=== PATIENT | female | born 1975 | race Caucasian/White ===

== ENCOUNTER → 2016-09-17 | Day surgery (SDC) | payer OTHER ==
--- NOTE | 2016-09-18 13:05 | PATH ---
Surgical Pathology Report Patient Name: WILIAN DICKSON [facility]. Rec. #: [id number] /Age/Gender: 1975 (Age: 41) / F Account: [id number] Location: [facility] Taken: 09/17/2016 Received: 09/17/2016 Reported: 09/18/2016 Physicians: Polly Rene M.D. Specimen(s) Received A: RIGHT BREAST SPECIMEN WITH CALCIFICATIONS B: RIGHT BREAST SPECIMEN WITHOUT CALCIFICATIONS Clinical History Nonpalpable lesion Mammographic findings: microcalcification, suspicious Final Diagnosis A. BREAST, RIGHT, WITH CALCIFICATIONS, STEREOTACTIC BIOPSY: BREAST TISSUE SHOWING COLUMNAR CELL CHANGES WITH ASSOCIATED CALCIFICATIONS. B. BREAST, RIGHT, WITHOUT CALCIFICATIONS, STEREOTACTIC BIOPSY: FOCAL ATYPICAL DUCTAL HYPERPLASIA (ADH) ARISING IN ASSOCIATION WITH COLUMNAR CELL CHANGES. Electronically Signed Karlie Menezes M.D. Gross Description A. Received in formalin, labeled "right breast with calcifications," are 3 farris-yellow, cylindrical portions of fibroadipose tissue ranging from 2.3-3.0 cm. in length and averaging 0.2 cm. in diameter. The specimen is submitted in toto in one cassette. B. Received in formalin, labeled "right breast without calcifications," are 5 farris-yellow, cylindrical portions of fibroadipose tissue ranging from 0.7-2.5 cm. in length and averaging 0.3 cm. in diameter. The specimen is submitted in toto in one cassette. Time to formalin fixation: 5 minutes Total formalin fixation time: Approximately 6 hours. 09/17/201609/17/2016
== END | disposition home or self-care (01) ==
LOC: FMAMMOTONE 10:28
PROVIDERS: ATTEND Surgery
PROC: 0HBT3ZX Excision of Right Breast, Percutaneous Approach, Diagnostic (ICD-10-PCS; principal; 2016-09-17)
DX: N60.81 Other benign mammary dysplasias of right breast (principal); R92.1 Mammographic calcification found on diagnostic imaging of breast
CPT/HCPCS: 19081; 87899; 88305-TC; A4648

== ENCOUNTER 2016-10-15 06:45 | Day surgery (SDC) | payer OTHER ==
--- NOTE | 2016-10-13 10:25 | HP ---
Admitting History and Physical - Primary Care Physician PCP: Kat Garcia - Admission Chief Complaint: right breast atypia History of Present Illness: Patient is a 41 yo female noted to have right breast calcifications at the 12: 00 position (08/28/2016). Patient underwent stereotactic core bx which was positive for atypia. Patient is presenting for right breast WE with NL. History Source: Patient Limitations to Obtaining History: No Limitations - Past Medical History ...LMP: 12/24/13 - Past Surgical History Past Surgical History: Yes: Breast Biopsy (bilateral breast bx (benign cyst) 2004), Tubal Ligation Additional Past Surgical History: abdominoplasty parottid gland cyst excision (2014) - Smoking History Smoking history: Never smoked Have you smoked in the past 12 months: No - Alcohol/Substance Use Hx Alcohol Use: No Home Medications - Allergies Allergies/Adverse Reactions: Allergies Allergy/AdvReac Type Severity Reaction Status Date / Time erythromycin base Allergy Mild Hives Verified 05/13/15 16:31 [Erythromycin Base] Penicillins Allergy Mild Hives Verified 05/13/15 16:31 - Home Medications Home Medications: Ambulatory Orders No Home Medications 0 dose .ROUTE UTDICT 01/01/14 Lipase/Protease/Amylase [Pancrelipase 5,000 Dr Capsule -] 2 each PO TIDCM #30 cap 01/02/14 Metronidazole [Flagyl -] 250 mg PO TID #10 tablet 01/02/14 Pantoprazole Sodium [Protonix -] 40 mg PO DAILY #30 tablet.ec 01/02/14 Family Disease History - Family Disease History Family Disease History: CA: Grandparent (breast), Brother (leukemia) Other Family History: paternal aunt- breast 50s. maternal cousin-leukemia. maternal cousin-colon cancer Review of Systems - Review of Systems Cardiovascular: reports: No Symptoms Respiratory: reports: No Symptoms Breasts: reports: See HPI Musculoskeletal: reports: Back Pain Physical Examination Breast(s): Yes: Other (Breasts are diffusely nodular without suspicious masses or adenopathy bilaterally.) Problem List - Problems (1) Atypical ductal hyperplasia of right breast Assessment/Plan: right breast WE with NL Code(s): N60.91 - UNSPECIFIED BENIGN MAMMARY DYSPLASIA OF RIGHT BREAST
[2016-10-14 12:24] VITALS: BMI 31.4
[2016-10-15] MEDS ORDERED: MIDAZOLAM HCL 2 MG/2 ML SINGLE DOSE VIAL ONE ×3 (11:35→12:06)
[2016-10-15] MEDS ORDERED: KETOROLAC TROMETHAMINE 30 MG/1 ML VIAL ONE (11:47)
[2016-10-15] MEDS ORDERED: ONDANSETRON 4 MG/2 ML VIAL ONE (11:48)
[2016-10-15] MEDS ORDERED: DEXAMETHASONE SOD PHOSPHATE 4 MG/1 ML VIAL ONE (11:48)
[2016-10-15] MEDS ORDERED: PROPOFOL 20 ML ONE (11:53)
[2016-10-15] MEDS ORDERED: CLINDAMYCIN PHOSPHATE 600 MG/4 ML VIAL ONE (11:57)
[2016-10-15] MEDS ORDERED: KETOROLAC TROMETHAMINE 30 MG/1 ML VIAL IVPUSH PRN (13:21)
[2016-10-15] MEDS ORDERED: DEXTROSE 5%-0.45% SALINE 1,000 ML IV SCH (13:30)
[2016-10-15 13:42] VITALS: TEMP 97.5
[2016-10-15] MEDS ORDERED: ONDANSETRON *ODT* 4 MG TABLET ONE (14:13)
[2016-10-15] MEDS ORDERED: ONDANSETRON 4 MG/2 ML VIAL IVPB PRN (14:35)
[2016-10-15 14:50] VITALS: PULSE 58
[2016-10-15 14:51] VITALS: BP 126/67
--- NOTE | 2016-10-16 08:15 | OP ---
DATE OF OPERATION: 10/15/2016 PREOPERATIVE DIAGNOSIS: Right breast atypia. POSTOPERATIVE DIAGNOSIS: Right breast atypia. PROCEDURE: Right wide excision with needle localization. SURGEON: Kat Garcia MD EDITOR PRODUCER: GILDARDO Nunez ANESTHESIA: MAC. ANESTHESIOLOGIST: Ravi Manzanares MD SPECIMEN: Right breast tissue. INDICATIONS FOR PROCEDURE: The patient is a 41-year-old female with a family history of breast and colorectal cancer. She had an abnormal right mammogram. Biopsy showed atypia. Wide excision was recommended. She is going into the operating room for the procedure. The procedure, risks, and complications were discussed with her prior to surgery. DESCRIPTION OF PROCEDURE: The patient was taken to breast imaging where she underwent localization of the clip in the right breast. She was taken to ambulatory surgery, where informed consent was obtained, and the right breast was identified with a marker. She was taken to the operating room and placed on the operating table in the supine position. Sequential compression devices were placed on both legs. She received clindamycin prior to surgery. Anesthesia was initiated. The right breast was prepped and draped in the usual fashion. A time-out was performed. Examination of the breast showed a localizing wire exiting from the 12 o'clock position. The tip was palpated through the skin. An incision was made after infiltrating the skin with 1% lidocaine. The incision was made at the superior border of the areola. The incision was deepened using electrocautery. Electrocautery was used to mobilize the tissue around the wire until it was completely from the breast tissue. The tissue was very dense. Once the tissue was completely mobilized, the specimen was labeled with silk sutures with a long stitch laterally and a short stitch superiorly. During this process, the needle was inadvertently detached from the specimen. This specimen was sent to radiology which showed the specimen was included. The wound was irrigated and inspected for hemostasis. Once hemostasis was satisfactory, the incision was closed. The skin was infiltrated with 0.25% Marcaine. The deep tissue was reapproximated with interrupted sutures of 3-0 Vicryl. The dermis was closed with interrupted sutures of 3-0 Vicryl. The skin was closed with a running subcuticular closure of 4-0 Monocryl. The patient tolerated the procedure well. At the end of the procedure, all sponge and instrument counts were correct. She was awakened and taken to the recovery area in satisfactory condition. Polly [id number] MTDD
--- NOTE | 2016-10-19 15:52 | PATH ---
Surgical Pathology Report Patient Name: SYLVIA DICKSON [facility]. Rec. #: [id number] /Age/Gender: 1975 (Age: 41) / F Account: [id number] Location: [facility] Taken: 10/15/2016 Received: 10/15/2016 Reported: 10/19/2016 Physicians: Kat Garcia M.D. Specimen(s) Received RIGHT BREAST WIDE EXCISION Clinical History Atypia Final Diagnosis BREAST, RIGHT, WIDE EXCISION: BREAST TISSUE SHOWING ATYPICAL DUCTAL HYPERPLASIA (ADH) WITH ASSOCIATED CALCIFICATIONS. PRIOR BIOPSY SITE CHANGES ARE PRESENT. Electronically Signed Karlie Menezes M.D. Gross Description Received in formalin, labeled "right breast wide excision," is a 4.6 x 4.3 x 1.2 cm. farris-yellow, irregular, portion of fibroadipose tissue. There is no needle localization wire present. There is a short suture marking the superior aspect and a long suture marking the lateral aspect, per the surgeon. There is no skin or nipple present. The specimen is inked as follows: superior and lateral blue; inferior green; medial yellow; anterior red; deep black. The specimen is serially sectioned from lateral to medial. Sectioning reveals a focus of hemorrhage, possibly consistent with a previous biopsy site. The remaining breast parenchyma displays diffuse dense, white fibrous tissue. No definitive masses are identified. Tractor Engine Assembler sections are submitted in 8 cassettes as follows: 1-focus of hemorrhage with anterior, deep and inferior margins; 9-3-[id number] fibrous tissue surrounding focus of hemorrhage with anterior, deep and inferior margins; 4-focus of hemorrhage with medial margin; 5-superior margin; [id number] admissions representative fibrous tissue with anterior and deep margins; 8-lateral margin. Time to formalin fixation: 25 minutes Total formalin fixation time: Approximately 29 hours. 10/16/2016 saudi10/16/2016
== END 2016-10-15 14:45 | disposition home or self-care (01) ==
LOC: FASU 06:45
PROVIDERS: ATTEND Surgery
PROC: 0HBT0ZX Excision of Right Breast, Open Approach, Diagnostic (ICD-10-PCS; principal; 2016-10-15 11:30)
DX: N60.91 Unspecified benign mammary dysplasia of right breast (principal); N64.89 Other specified disorders of breast; Z80.3 Family history of malignant neoplasm of breast; Z80.0 Family history of malignant neoplasm of digestive organs
CPT/HCPCS: 19281; 84703; 88307-TC

== ENCOUNTER 2017-10-19 06:36 | Emergency (ER) | payer OTHER ==
[2017-10-19 06:55] VITALS: TEMP 98.3; BMI 30.9
--- NOTE | 2017-10-19 07:46 | PDOC ---
History of Present Illness - General Chief Complaint: Pain Stated Complaint: ABD PAIN Time Seen by Provider: 10/19/17 07:41 - History of Present Illness Initial Comments: 10/19/17 07:44 42 yo (1 aborta) F with h/o atypical ductal dysplasia of R breast, abdominoplasty w/ panniculectomy, and tubal ligation who p/w pelvic pain. Patient reports 2 days of worsening intense spasmodic pelvic and lower abdominal pain occurring every hour. Occasional rectal radiation of pain. States that pelvic pain is similiar to uterine contraction type pain. No identifiable triggers or alleviators. 3 Tylenol this AM with no relief. Patient also reports 3-5 days of mennorhagia requiring 3-5 soaked tampons per day, with absent vaginal discharge. Pt. states this is day 2 of her second menstruation this month. Endorses dyspareurnia. Denies GI complaints. Denies N/V , diarrhea, constipation, postprandial pain, or decreased PO intake. Denies F/C , N/V, CP, SOB, urinary complaints, lightheadedness, weakness, sensory changes. 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 Patient with recent workup for mesntrual cramps this past month, with neg. transvaginal U/S. Currently sexually active with of 30 years. Denies h/o STI's. Tobacco cessation 8 years ago following 25 year ppd smoking history. Denies alcohol use. Urnremarkable transvaginal U/S (09/17/17) Past History - Past Medical History Allergies/Adverse Reactions: Allergies Allergy/AdvReac Type Severity Reaction Status Date / Time erythromycin base Allergy Mild Hives Verified 10/15/16 07:41 [Erythromycin Base] Penicillins Allergy Mild Hives Verified 10/15/16 07:41 Home Medications: Ambulatory Orders NK [No Known Home Medication] 10/19/17 Anemia: No Asthma: No Cancer: No Cardiac Disorders: No CVA: No COPD: No CHF: No Dementia: No Diabetes: No GI Disorders: No Disorders: No HTN: No Hypercholesterolemia: No Liver Disease: No Seizures: No Thyroid Disease: No - Surgical History Abdominal Surgery: (tummy tuck) Appendectomy: No Cardiac Surgery: No Cholecystectomy: No Lung Surgery: No Neurologic Surgery: No Orthopedic Surgery: No - Suicide/Smoking/Psychosocial Hx Smoking History: Never smoked Have you smoked in the past 12 months: No Information on smoking cessation initiated: No Hx Alcohol Use: No Drug/Substance Use Hx: No Substance Use Type: None Hx Substance Use Treatment: No Review of Systems - Review of Systems Comments:: 10/19/17 07:45 GENERAL/CONSTITUTIONAL: No fever or chills. No weakness. HEAD, EYES, EARS, NOSE AND THROAT: No change in vision. No ear pain or discharge. No sore throat. CARDIOVASCULAR: No chest pain or shortness of breath RESPIRATORY: No cough, wheezing, or hemoptysis. GASTROINTESTINAL: + Abdominal pain. No nausea, vomiting, diarrhea or constipation. GENITOURINARY: + Pelvic Pain. No dysuria, frequency, or change in urination. MUSCULOSKELETAL: No joint or muscle swelling or pain. No neck or back pain. SKIN: No rash NEUROLOGIC: No headache, vertigo, loss of consciousness, or change in strength/ sensation. ENDOCRINE: No increased thirst. No abnormal weight change HEMATOLOGIC/LYMPHATIC: No anemia, easy bleeding, or history of blood clots. ALLERGIC/IMMUNOLOGIC: No hives or skin allergy. *Physical Exam - Vital Signs Last Vital Signs Temp Pulse Resp BP Pulse Ox 98.3 F 69 18 134/74 99 10/19/17 06:52 10/19/17 06:52 10/19/17 06:52 10/19/17 06:52 10/19/17 06:52 - Physical Exam Comments: 10/19/17 07:45 GENERAL: Awake, alert, and fully oriented, in no acute distress HEAD: No signs of trauma, normocephalic, atraumatic EYES: PERRLA, EOMI, sclera anicteric, conjunctiva clear ENT:Hearing grossly normal, nares patent, oropharynx clear without exudates. Moist mucosa NECK: Normal ROM, supple, no lymphadenopathy, JVD, or masses LUNGS: No distress, speaks full sentences, clear to auscultation bilaterally HEART: Regular rate and rhythm, normal S1 and S2, no murmurs, rubs or gallops, peripheral pulses normal and equal bilaterally. ABDOMEN: Soft, lower abdominal ttp. normoactive bowel sounds. No guarding, no rebound, no rigidity. No masses. Neg CVA ttp. : Normal appearing external genitalia. blood in vaginal vault. Absent cervical change. Cervical os closed, with absent drainage. Absent CMT on BM. Chaperoned by Rosa peterson. EXTREMITIES : Normal inspection, Normal range of motion, no edema. No clubbing or cyanosis. SKIN: Warm, Dry, normal turgor, no rashes or lesions noted ED Treatment Course - LABORATORY CBC & Chemistry Diagram: 10/19/17 09:25 10/19/17 09:25 Medical Decision Making - Medical Decision Making 10/19/17 08:24 42 yo (1 aborta) F with h/o atypical ductal dysplasia of R breast, abdominoplasty w/ panniculectomy, and tubal ligation who p/w 2 days of worsening, pelvic and lower abdominal, spasmodic pain and 3-5 days of heavy menstrual bleeding. + dyspareurnia. Denies F/C, N/V, diarrhea, constipation, postprandial pain, or decreased PO intake CP, SOB, urinary complaints, lightheadedness, weakness, sensory changes. 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 Patient with recent workup for menstrual cramps this past month, with neg. transvaginal U/S. Physical exam with lower abdominal ttp. pelvic exam unremarkable. HDS. R/o ectopic in setting of painful vaginal bleeding. Differential also includes endometriosis, DUB, cystitis, threatened . ED Course: Urine preg, UA, CBC, CMP, T&S Transvaginal U/S NS 1 L 10/19/17 12:41 CBC, CMP UA: 3 + blood, 50 RBC, neg nitrite. 10/19/17 12:59 Transvaginal U/S: Unremarkable. Similar to previous study (09/17/17) D/c with return precautions. Advised to f/u with AIRPORT MAINTENANCE LABORER. 10/19/17 13:[address] Bryant, have pt. f/u with him this week. No further recs. *DC/Admit/Observation/Transfer Diagnosis at time of Disposition: Dysfunctional uterine bleeding - Discharge Dispostion Disposition: HOME Condition at time of disposition: Stable Admit: No - Referrals Referrals: Juan Carlos Rehman [Primary Care Provider] - - Patient Instructions Printed Discharge Instructions: Painful Menstrual Periods, DI for Dysmenorrhea Additional Instructions: Please return to the emergency department with any new or worsening symptoms or concerns. Please follow up with your primary care physician within 72 hours. - Post Discharge Activity - Attestations Physician Attestion: 10/19/17 07:46 I attest to the information provided in this note.
[2017-10-19] MEDS ORDERED: SODIUM CHLORIDE 1,000 ML IV STA (08:27)
[2017-10-19 09:34] LABS: HCG,QUALITATIVE URINE NEGATIVE; URINE APPEARANCE CLEAR; URINE BILIRUBIN NEGATIVE (<2.0 mg/dL); URINE BLOOD 3+ (NEGATIVE); URINE COLOR STRAW; URINE GLUCOSE (UA) NEGATIVE (NEGATIVE); URINE KETONE NEGATIVE (NEGATIVE); URINE LEUK ESTERASE NEGATIVE (NEGATIVE); URINE NITRITE NEGATIVE (NEGATIVE); URINE PROTEIN NEGATIVE (NEGATIVE); URINE UROBILINOGEN NEGATIVE mg/dL (0.2-1.0)
[2017-10-19] MEDS ORDERED: KETOROLAC TROMETHAMINE 30 MG/1 ML VIAL IVPUSH ONE (09:43)
[2017-10-19 09:55] LABS: BASO % 0.7 % (0-2.0); EOS % 2.6 % (0-4.5); HEMATOCRIT 39.1 % (32.4-45.2); LYMPH % 19.4 % (8-40); MCH 28.8 pg (25.7-33.7); MCHC 33.2 g/dl (32.0-36.0); MEAN CELL VOLUME 86.6 fl (80-96); MEAN PLT VOLUME 8.7 fl (7.5-11.1); NEUT % 69.3 % (42.8-82.8); PLATELET COUNT 354 K/MM3 (134-434); RBC 4.51 M/mm3 (3.60-5.2); WHITE BLOOD COUNT 9.9 K/mm3 (4.0-10.0)
[2017-10-19 10:15] LABS: ALBUMIN 3.4 g/dl (3.4-5.0); ALK PHOS 98 U/L (45-117); ANION GAP 6 (8-16); BILIRUBIN,TOTAL 0.2 mg/dL (0.2-1.0); BLOOD UREA NITROGEN 13 mg/dL (7-18); CALCIUM 8.7 mg/dL (8.5-10.1); CHLORIDE 108 mmol/L (98-107); CO2 27 mmol/L (21-32); CREATININE 0.6 mg/dL (0.55-1.02); GLUCOSE,RANDOM 76 mg/dL (74-106); SGPT/ALT 32 U/L (12-78); SODIUM 141 mmol/L (136-145)
[2017-10-19 10:16] LABS: POTASSIUM 4.9 mmol/L (3.5-5.1); SGOT/AST 20 U/L (15-37)
[2017-10-19] MEDS ORDERED: KETOROLAC TROMETHAMINE 30 MG/1 ML VIAL ONE (10:30)
[2017-10-19 10:55] LABS: INR 1.03 (0.82-1.09); PROTHROMBIN TIME (PATIENT) 11.6 SEC (9.98-11.88)
[2017-10-19 11:42] LABS: EPI CELLS RARE /HPF (FEW); URINE MUCUS RARE
[2017-10-19] MEDS ORDERED: ACETAMINOPHEN 500 MG TABLET (FP) PO ONE (13:46)
[2017-10-19] MEDS ORDERED: ACETAMINOPHEN 325 MG TABLET (FP) ONE (13:51)
[2017-10-19 13:58] VITALS: BP 129/78; PULSE 73
--- NOTE | 2017-10-19 14:28 | PDOC ---
Attending Attestation - Resident Resident Name: Evert Queen - ED Attending Attestation I have performed the following: I have examined & evaluated the patient, The case was reviewed & discussed with the resident, I agree w/resident's findings & plan, Exceptions are as noted <Marianela Mack - Last Filed: 10/19/17 14:27> - HPI HPI: 10/19/17 14:29 The patient is a 42 year old female (aborta 1) with past medical history of right breast ductal dysplasia, tummy tuck, and tubal ligation who presents to the ED with complaints of 2 days of worsening pelvic pain for the past two days. The patient complains of an intermittent cramping pain that feels like contractions with associated heavy bleeding, stating she is saturating 3-5 large tampons a day. She reports currently having her menses for the second time this month and reports being worked up for intense cramping over the past month in which she had a negative transvaginal ultrasound 1 month ago. The patient denies any history of STD, or any vaginal discharge, states she is sexually active with only her . Denies any recent illness, fevers, or chills. Denies dizziness, CP, SOB. - Physicial Exam PE: 10/19/17 14:29 agree with resident exam - Medical Decision Making 10/19/17 14:29 Documentation prepared by Rosa Mcmullen, acting as medical lab director for Marianela Mack MD, /DO. <Rosa Mcmullen - Last Filed: 10/19/17 14:29>
--- NOTE | 2017-10-19 16:58 | EKG ---
Test Reason : Blood Pressure : / mmHG Vent. Rate : 056 BPM Atrial Rate : 056 BPM P-R Int : 126 ms QRS Dur : 088 ms QT Int : 426 ms P-R-T Axes : 016 066 036 degrees QTc Int : 411 ms SINUS BRADYCARDIA OTHERWISE NORMAL ECG WHEN COMPARED WITH ECG OF 01-JAN-2014 18:56, NO SIGNIFICANT CHANGE WAS FOUND Confirmed by MD Patricia, Federico ([id number]) on 10/19/2017 4:57:38 PM Referred By: Confirmed By:Federico Gomez MD
== END 2017-10-19 13:58 | disposition home or self-care (01) ==
LOC: JER 06:36
PROC: 3E0337Z Introduction of Electrolytic and Water Balance Substance into Peripheral Vein, Percutaneous Approach (ICD-10-PCS; principal; 2017-10-19)
PROC: 3E0333Z Introduction of Anti-inflammatory into Peripheral Vein, Percutaneous Approach (ICD-10-PCS; 2017-10-19)
DX: N93.8 Other specified abnormal uterine and vaginal bleeding (principal)
CPT/HCPCS: 36415; 76830-TC; 80053; 81003; 81015; 84703; 85025; 85610; 93005; 93010; 99284-25; J7030

== ENCOUNTER 2018-04-08 06:49 | Day surgery (SDC) | payer OTHER ==
[2018-04-04 08:24] VITALS: BMI 30.6
[2018-04-08] MEDS ORDERED: ONDANSETRON 4 MG/2 ML VIAL IVPUSH PRN ×2 (07:45→09:33)
[2018-04-08] MEDS ORDERED: LACTATED RINGERS SOLUTION 1,000 ML IV SCH (07:45)
[2018-04-08] MEDS ORDERED: oxyCODONE HCL 5 MG TABLET PO PRN ×3 (07:45→09:33)
--- NOTE | 2018-04-08 08:14 | HP ---
History & Physical Update - Physical Physical: No Change - Assessment Assessment: No Change - Plan Plan: No Change
[2018-04-08] MEDS ORDERED: MIDAZOLAM HCL 2 MG/2 ML SINGLE DOSE VIAL ONE (08:16)
[2018-04-08] MEDS ORDERED: DEXAMETHASONE SOD PHOSPHATE 4 MG/1 ML VIAL ONE (09:06)
[2018-04-08] MEDS ORDERED: LIDOCAINE HCL/PF 2% SDV 5ML VIAL ONE (09:06)
[2018-04-08] MEDS ORDERED: PROPOFOL 20 ML ONE (09:10)
[2018-04-08] MEDS ORDERED: KETOROLAC TROMETHAMINE 30 MG/1 ML VIAL ONE (09:25)
[2018-04-08] MEDS ORDERED: IBUPROFEN 800 MG/8 ML IJ IVPB PRN (09:33)
[2018-04-08] MEDS ORDERED: IBUPROFEN 600 MG TABLET (FP) PO PRN (09:33)
[2018-04-08] MEDS ORDERED: ELECTROLYTE-148 SOLN 1,000 ML IV SCH (09:45)
[2018-04-08] MEDS ORDERED: oxyCODONE HCL 5 MG TABLET ONE (11:31)
[2018-04-08 12:52] VITALS: BP 149/94; PULSE 51; TEMP 97.5
--- NOTE | 2018-04-11 17:07 | PATH ---
Surgical Pathology Report Patient Name: SYLVIA DICKSON [facility]. Rec. #: [id number] /Age/Gender: 1975 (Age: 43) / F Account: [id number] Location: [facility] Taken: 04/08/2018 Received: 04/08/2018 Reported: 04/11/2018 Physicians: Glen Ortiz M.D. Specimen(s) Received ENDOMETRIAL CURETTINGS Clinical History Menorrhagia Final Diagnosis ENDOMETRIAL CURETTINGS: SECRETORY ENDOMETRIUM WITH STROMAL BREAKDOWN. SEPARATE FEW FRAGMENTS OF SMOOTH MUSCLE BUNDLES. Electronically Signed Stephanie Almanza M.D. Gross Description Received in formalin labeled "endometrial curettings," is a 1.8 x 1.4 x 0.3 cm aggregate of farris-brown soft tissue fragments. The formalin is filtered and the specimen is entirely submitted in one cassette. /04/08/201804/08/2018
--- NOTE | 2018-04-12 10:20 | OP ---
DATE OF OPERATION: 04/08/2018 PREOPERATIVE DIAGNOSIS: Menometrorrhagia. POSTOPERATIVE DIAGNOSIS: Menometrorrhagia. PROCEDURE: Hysteroscopy, dilatation and curettage, and endometrial hydrothermal ablation. SURGEON: Glen Ortiz MD ANESTHESIA: General. ESTIMATED BLOOD LOSS: 20 mL DESCRIPTION OF OPERATION: Patient was taken to the operating room. Under adequate general anesthesia, in dorsal lithotomy position, examination under anesthesia revealed the external genitalia to be normal. Vagina was normal. Cervix was clean; no lesion. Uterus was prominent. Adnexa: No masses were palpable. Then, with a weighted speculum in the vagina, anterior lip of the cervix was grasped with a single-tooth tenaculum. Cervix was gradually dilated with Hegar dilators, and then, hysteroscope was introduced. Visualization of endocervical canal appeared to be normal. Endometrium was prominent, but no abnormality was seen. No submucous myoma visualized. Both cornua regions were visualized. Then, hysteroscope was withdrawn, and D&C was done. Then, thermal ablation device was inserted, and a thermal ablation was done successfully without any complication. Patient tolerated the procedure well, left the OR in good condition. GLEN ORTIZ M.D. [id number]
== END 2018-04-08 12:50 | disposition home or self-care (01) ==
LOC: JASU-SURG 06:49
PROVIDERS: ATTEND Obstetrics & Gynecology
PROC: 0U5B8ZZ Destruction of Endometrium, Via Natural or Artificial Opening Endoscopic (ICD-10-PCS; principal; 2018-04-08 08:30)
PROC: 0UDB7ZX Extraction of Endometrium, Via Natural or Artificial Opening, Diagnostic (ICD-10-PCS; 2018-04-08 08:30)
DX: N92.1 Excessive and frequent menstruation with irregular cycle (principal)
CPT/HCPCS: 84703; 88305-TC; 94760

== ENCOUNTER 2018-12-21 07:28 | Day surgery (SDC) | payer OTHER | END 2018-12-21 09:15 | disposition home or self-care (01) | LOC: FASU-ENDO 07:28 ==

== ENCOUNTER 2021-07-20 20:26 | Emergency (ER) | payer OTHER ==
[2021-07-20 22:10] VITALS: BP 137/72; PULSE 75; TEMP 98.3; BMI 28.3
[2021-07-20] MEDS ORDERED: ACETAMINOPHEN 325 MG TABLET (FP) PO ONE (22:50)
== END 2021-07-21 01:00 | disposition home or self-care (01) ==
LOC: JER 20:26
DX: M25.572 Pain in left ankle and joints of left foot (principal)
CPT/HCPCS: 73610-TC-LT-FY; 73630-TC-LT; 99283-25

== ENCOUNTER 2022-07-27 12:04 | Emergency (ER) | payer OTHER ==
[2022-07-27 12:38] VITALS: BP 116/64; PULSE 70; RESP 20; TEMP 98; BMI 27.4
[2022-07-27] MEDS ORDERED: DIPHTH,PERTUSS(ACELL),TET 0.5 ML DISP.SYRIN IM ONE ×2 (13:18→13:21)
== END 2022-07-27 13:34 | disposition home or self-care (01) ==
LOC: JERFT 12:04
PROC: 3E0234Z Introduction of Serum, Toxoid and Vaccine into Muscle, Percutaneous Approach (ICD-10-PCS; principal; 2022-07-27)
DX: S09.90XA Unspecified injury of head, initial encounter (principal); W22.8XXA Striking against or struck by other objects, initial encounter
CPT/HCPCS: 90715; 99283-25

== ENCOUNTER 2023-01-11 08:35 | Emergency (ER) | payer OTHER ==
[2023-01-11 08:50] VITALS: BP 117/62; PULSE 61; RESP 18; TEMP 98.6; BMI 26.9
== END 2023-01-11 10:18 | disposition home or self-care (01) ==
LOC: JERFT 08:35 → JER 08:35 → JERFT 10:18
DX: L03.316 Cellulitis of umbilicus (principal); L53.9 Erythematous condition, unspecified; R19.09 Other intra-abdominal and pelvic swelling, mass and lump
CPT/HCPCS: 99283-25